=== PATIENT | female | born 1930 | race Caucasian/White ===

== ENCOUNTER 2017-09-06 08:55 | Day surgery (SDC) | payer MEDICARE, OTHER ==
[~2017-09-06] VITALS: Ht 160 cm; Wt 68.0 kg
[~2017-09-06 08:55] MED LIST: HYDROCHLOROTH12.5 M1 PO; LISINOPRIL20 MG PO; LO-DOSE ASPIRIN81 MG PO; METOPROLOL TART50 MG PO; NORVASC5 MG PO; OMEPRAZOLE20 MG PO; SIMVASTATIN40 MG PO
--- NOTE | 2017-09-06 11:31 | NUR ---
09/06/17 1131 Nena Silva 1125-PATIENT ARRIVED TO PACU ON 6L MASK O2 SAT 1000% AWAKE DENIES PAIN OR NAUSEA. 2 INCISION SITES TO LEFT GROIN CDI JOANIE DRAIN IN PLACE.
[2017-09-06] MEDS ORDERED: MAPAP325 MG PO (11:35)
[2017-09-06] MEDS ORDERED: HYDROCODON-ACE1 EA10 PO (11:35)
--- NOTE | 2017-09-06 12:03 | NUR ---
PAPER CHARTING DONE FOR INFORMATION PRIOR TO PHASE II. PLEASE SEE SCANNED PAPER CHART COPIES.
--- NOTE | 2017-09-06 12:13 | NUR ---
PT RETURNED FROM PACU. PT DENIES PAIN AND NAUSEA. PT TOLERATING PO FLUID AND JELLO. BED RAILS UP, CALL LIGHT WITHIN REACH.
--- NOTE | 2017-09-06 13:16 | NUR ---
PT UP TO REST ROOM. VOIDS 400ML WITHOUT DIFFICULTY. PT DRESSES SELF AND IS STEADY ON FEET WITH ONE PERSON STAND BY ASSIST. VITALS TAKEN. DISCHARGE INSTRUCTIONS REVIEWED. PT VERBALIZES UNDERSTANDING OF DISCHARGE INSTRUCTIONS. JOANIE DRAIN CARE REVIEWED WITH PT. PT VERBALIZES AND DEMONSTRATES UNDERSTANDING. PT WHEELED FROM UNIT. SON AT FRONT OF HOSPITAL, QUESTIONS ANSWERED.
--- NOTE | 2017-09-06 19:42 | OR ---
[facility] [address] [place] [address] Signed DATE OF OPERATION: 09/06/2017 SURGEON: Karl Sutton MD PREOPERATIVE DIAGNOSES: 1. History of left leg (lower medial thigh) melanoma 2012, status post excision, sentinel lymph node biopsy. 2. Left groin iliac adenopathy. 3. Left medial thigh soft tissue mass. 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 PROCEDURES: 1. Excision of left medial thigh soft tissue mass (deep subfascial). 2. Left inguinal lymph node excision and placement of drain. ANESTHESIA: General endotracheal, Jose [place], SUPERVISOR BUFFING AND PASTING and local 10 mL of 0.25% Marcaine with epinephrine. INDICATION: This 87-year-old white woman is a patient of Dr. Reilly and 4 years ago was seen by Dr. Merida, mental health program manager, in [place] and referred to [facility] to Dr. Carroll for definitive treatment of a melanoma of the left medial thigh. This included wide excision and sentinel lymph node biopsy. She said to have no sign of metastatic disease. More recently, she has been found to have a mass cephalad to the previous excision site and medial left thigh as well as regional adenopathy including adenopathy of the left groin. A CT scan was performed confirming iliac adenopathy as well, but no evidence of distant metastatic disease otherwise. She is admitted at this time to undergo excision of the primary lesion in the left medial thigh as well as excision of inguinal lymph node for tissue diagnosis. Of course, it is highly suspect she has recurrent melanoma, though the possibility of lymphoma and other abnormalities must be considered as well. She and her son understand the risks of bleeding, infection, lymphocele development, need for drain and so forth related to excision of the mass as well as inguinal lymph node biopsy and wished to proceed. Electronically Signed By: KARL SUTTON MD 09/06/17 1942 PATIENT NAME: LITO SO OPERATIVE REPORT DATE OF : 30 PHYSICIAN: KARL SUTTON MD REPORT #: [id number] REPORT IS CONFIDENTIAL AND NOT TO BE RELEASED WITHOUT AUTHORIZATION [facility] [address] [place], [place] [address] Signed FINDINGS: The lesion in the left medial thigh was perla and nonpigmented, very firm and hard and multilobulated and appeared to be contiguous with lymphatic chain in the medial thigh. More proximally, there was some deeply pigmented material within the lymphatic channels. Wide excision was undertaken of the mass with no clinically remaining abnormality in the medial lower thigh. As regard to the inguinal area, there is clearly metastatic disease to this area. The lesion itself looked purple externally, but when bivalved off the table, had a white dense central core to it. The superficial saphenous vein was draped over the mass of the left groin and was spared. A drain was placed extending from the superior wound distalward to the medial thigh wound and attached to bulb suction. DESCRIPTION OF PROCEDURE: The patient was brought to the operating room, given a general endotracheal anesthetic. Preoperative antibiotics were given. Sequential compression device stockings used and heparin subcutaneously administered. The abdomen through the knee was prepared with chlorhexidine solution and draped sterilely after external rotation and abduction of the proximal thigh. An incision was made directly over the left medial lower thigh soft tissue mass. Dissection was carried through the subcutaneous tissue with blunt and electrocautery dissection and the mass encountered. Using rather extensive dissection, it was widely excised including a pedicle more inferiorly that appeared to be lymphatic channel, which was congested with nodular change including some dark pigmentation. Once excised, the wound was irrigated with saline solution. Clips were used for hemostasis during the course of excision of the mass. It was taken down to the deep fascia. That wound was packed and plans made for evaluation of the upper groin area. Adenopathy appeared to be best approach through an inguinal approach. An incision was made along the line of skin tension cephalad to the inguinal ligament. Dissection carried through the subcutaneous tissue. Using blunt dissection, the inguinal adenopathy could easily be identified. The saphenous vein junction was draped over the lesion medially and it was dissected away from it. Multiple small clips were used for lymphatic channels, but ultimately the pathologic adenopathy was excised. There remains additional pathologic anatomy internally of course. The excised specimen was probably 5 cm in size. It was somewhat purple in its appearance. It was bivalved on the back table. The center portion of the tumor had a white caseating sort of appearance, not deep pigmentation. This specimen sent fresh to the pathologist. Irrigation was undertaken in that wound and with a combination of clips and so forth, good lymphatic control was noted. The wound was then closed with interrupted 2-0 Vicryl in a subcutaneous layer of the left groin and a running subcuticular 3-0 Vicryl for the skin. The lower anteromedial skin lesion was closed in layers interrupted 2-0 Vicryl and running subcuticular 3-0 Vicryl. Steri-Strips were applied as was Mepilex silver sponge dressing. Not mentioned previously was the passage of a 7 mm flat Bryant drain, which lay incontinuity with the Electronically Signed By: KARL SUTTON MD 09/06/171941 PATIENT NAME: SOLITO OPERATIVE REPORT DATE OF : 30 PHYSICIAN: KARL SUTTON MD REPORT #: [id number] REPORT IS CONFIDENTIAL AND NOT TO BE RELEASED WITHOUT AUTHORIZATION [address] [place] [address] Signed lower incision site and the groin incision site and emanated through the left lower quadrant. The drain is a Bryant-type drain and is contiguous with both spaces. That drain was secured to the skin with nylon suture. A Mepilex silver sponge dressing applied to both wounds inferiorly and superiorly. BLOOD LOSS: Less than 10 mL. COUNTS: Sponge, needle, and instruments counts reported as correct x3. MD AMBROCIO Hylton/MARCELO /[id number] cc: MD Robert Daniels MD Electronically Signed By: KARL SUTTON MD 09/06/17 1942 PATIENT NAME: LITO SO OPERATIVE REPORT DATE OF : 30 PHYSICIAN: KARL SUTTON MD REPORT #: [id number] REPORT IS CONFIDENTIAL AND NOT TO BE RELEASED WITHOUT AUTHORIZATION
[2017-09-30] MEDS ORDERED: ASPIR 8181 MG PO (15:01)
== END 2017-09-06 13:15 | disposition home or self-care (01) ==
LOC: DS 08:55
PROVIDERS: Surgery
PROC: 07BJ0ZX Excision of Left Inguinal Lymphatic, Open Approach, Diagnostic (ICD-10-PCS; 2017-09-06)
PROC: 0JBM0ZZ Excision of Left Upper Leg Subcutaneous Tissue and Fascia, Open Approach (ICD-10-PCS; principal; 2017-09-06 09:30)
DX: C77.4 Secondary and unspecified malignant neoplasm of inguinal and lower limb lymph nodes (principal); I10 Essential (primary) hypertension; E78.5 Hyperlipidemia, unspecified; K21.9 Gastro-esophageal reflux disease without esophagitis; Z85.820 Personal history of malignant melanoma of skin; Z88.0 Allergy status to penicillin; Z79.899 Other long term (current) drug therapy; Z90.710 Acquired absence of both cervix and uterus; Z98.41 Cataract extraction status, right eye; Z98.42 Cataract extraction status, left eye; Z90.49 Acquired absence of other specified parts of digestive tract; Z98.890 Other specified postprocedural states
CPT/HCPCS: 00400; 88305; 88342; J2405; J2704; J3010

== ENCOUNTER 2019-05-02 15:00 | Inpatient (IN) | payer MEDICARE, OTHER ==
[~2019-05-02] VITALS: Ht 160 cm; Wt 52.8 kg
[~2019-05-02 15:00] MED LIST changes: +ALLOPURINOL100 MG PO; +ASPIR 8181 MG PO; +HYDROCODON-ACE1 EA10 PO; +K-TAB ER20 MEQ PO; +MAPAP325 MG PO; +PREDNISONE10 MG PO
--- NOTE | 2019-05-02 18:56 | NUR ---
SHIFT RPEORT RECEIVED FROM DAYSHIFT BRANDEN FIGUEROA AT BEDSIDE. PT AWAKE AND RESTING IN CHAIR, BROTHER IN ROOM. PT DENIES PAIN OR NEEDS AT THIS TIME. CALL LIGHT IN REACH.
--- NOTE | 2019-05-02 21:00 | NUR ---
PT IN HALLWAY AMBULATING WITH SON, NO NEEDS AT THIS TIME. PT APPEARS COMFORTABLE AND IN GOOD SPIRITS.
--- NOTE | 2019-05-02 21:20 | NUR ---
ASSESSMENT COMPLETE, SCHEDULED MEDICATIONS GIVEN (SEE EMAR). VSS, PT A/OX4. DENIES PAIN. BED ALARM ON FOR SAFETY, CALL LIGHT IN REACH. NO FURTHER NEEDS AT THIS TIME.
--- NOTE | 2019-05-02 23:28 | NUR ---
PT RESTING IN BED, EYES CLOSED. RR WNL, PT APPEARS COMFORTABLE, NO SIGNS OF DISTRESS NOTED. CALL LIGHT IN REACH. BED ALARM ON FOR SAFETY.
--- NOTE | 2019-05-03 03:18 | NUR ---
PT RESTING IN BED, EYES CLOSED, RR WNL. NO DISTRESS NOTED, CALL LIGHT IN REACH. BED ALARM ON FOR SAFETY.
--- NOTE | 2019-05-03 05:01 | NUR ---
PT HAD UNEVENTFUL NIGHT, SLEPT FOR MOST OF SHIFT. VSS, PT ON RA. WENT FOR WALK WITH SON AT BEGINNING OF SHIFT. 2 GRAM SODIUM DIET, TOLERATING WELL, NO NAUSEA. DENIED PAIN ALL SHIFT. USES CALL LIGHT APPROPERIATELY, BED ALARM ON FOR SAFETY. SBA WITH AMBULATION. VOIDING QS, NO BM THIS SHIFT. PT SWING BED.
--- NOTE | 2019-05-03 06:55 | NUR ---
BEDSIDE HANDOFF REPORT RECEIVED FROM RADIO FREQUENCY ENGINEER RN. PT SLEEPING, LEFT UNDISTURBED.
--- NOTE | 2019-05-03 09:24 | NUR ---
PT SITTING IN CHAIR, OT WORKING WITH PT. PT ON ROOM AIR, DENIES SOB, LUNG SOUNDS CLEAR. CMS INTACT, WIHTOUT EDEMA. WITHOTU IV ACEESS. BOWEL TONES ACTIVE, DENIES NAUSEA, GOOD APPETITE. PT ALERT/ORIENTED. VSS. PT DENIES NEEDS AT THIS TIME.
--- NOTE | 2019-05-03 10:55 | NUR ---
THIS MORNING AROUND 0930 PATIENT DID SHOWER WITH OCCUPATIONAL THERAPY. I DID CHANGE THE BED LINENS.
--- NOTE | 2019-05-03 12:17 | NUR ---
PT SITTING IN CHAIR, DRESSED IN STREET CLOTHES. SHE IS ALERT, ORIENTED AND SEEMS TO HAVE MORE COGNITIVE IMPROVEMENT. TALKED ABOUT NOT ONLY RECENT EVENTS, BUT FROM YEARS GONE BY. VISITED ABOUT A WIDE ARRAY OF SUBJECTS AND ON POINT IN EACH. PT HAD A VISITOR COME, EXTENDED A BLESSING, WILL FOLLOW NEEDED
--- NOTE | 2019-05-03 13:24 | NUR ---
PT SITTING IN CHAIR, ASSISTED WITH ELEVATING FEET. PT READING NEWS PAPAER. PT DENIES OTHER NEEDS AT THIS TIME.
--- NOTE | 2019-05-03 17:30 | NUR ---
PT WALKED IN LAMB COMPLETED 2 LAPS AROUND NURSING FLOOR. PT FOUND MEDICATION IN HER PANT POCKETS, IDENTIFIED PREDNISONE, PT OK WITH DISPOSING OF LOOSE TABLETS. PT NOW SITTING IN ROOM, DENIES OTHER NEEDS AT THIS TIME.
--- NOTE | 2019-05-03 18:07 | NUR ---
PT HAD UNEVENTFUL DAY. PT ALERT AND ORIENTED. PT ON ROOM AIR. PT WORKED WITH OT AND ST. PT WITH GOOD APPETITE, TOLERATING LOW SODIUM DIET. PT INDEPENDENT IN ROOM, WALKED IN LAMB.
--- NOTE | 2019-05-03 19:12 | NUR ---
RECEIVED REPORT FROM BRANDEN PULIDO. pt SITTING IN CHAIR CHATTING WITH VISITOR. WILL AMBULATE "IN A BIT" NO REQUESTS AT THIS TIME. CALL LIGHT WITHIN REACH. WHITEBOARD UPDATED.
--- NOTE | 2019-05-03 21:26 | NUR ---
ASSESSMENT DONE. pt RESTING IN BED. MEDICATIONS GIVEN (SEE MAR). REFUSED SENNA, JUST HAD BM. DENIED PAIN AT THIS TIME. CALL LIGHT WITHIN REACH. LIGHTS OFF FOR COMFORT. EDUCATION ABOUT GETTING UP IN THE NIGHT. NO FURTHER REQUESTS AT THIS TIME.
--- NOTE | 2019-05-04 00:51 | NUR ---
ROUNDED ON pt. RESTING WITH EYES CLOSED, RESPIRATIONS REGULAR AND UNLABORED, RATE = 18. CALL LIGHT WITHIN REACH.
--- NOTE | 2019-05-04 03:08 | NUR ---
ROUNDED ON pt. NO REQUESTS AT THIS TIME. CALL LIGHT WITHIN REACH.
--- NOTE | 2019-05-04 05:51 | NUR ---
pt RESTED MOST OF SHIFT. SBA. TOLERATING 2GM SODIUM DIET. AMBULATED IN HALLWAY. USES CALL LIGHT APPROPRIATELY.
--- NOTE | 2019-05-04 09:23 | NUR ---
PT IS UP WORKING WITH OT, HAS BEEN WALKING. PT IS UP AND DRESSED.
--- NOTE | 2019-05-04 12:07 | NUR ---
OT GAVE A WEEKEND ROUTINE TO RN FOR PT TO FOLLOW. SUPERVISED ROUTINE IN AM: GATHER AND SET UP TOWELS FROM TABLE BY CABINET, GATHER AND SET UP CLOTHES, SHOWER, DRESS SEATED, GROOMING (TEETH HAIR). SUPERVISED ROUTINE IN PM: BRUSH TEETH, CHANGE INTO [place] OR HOSPITAL GOWN. SUPERVISED WALKS OFF UNIT WITH PT LEADING THE WAY/EXPLAINING HOW TO GET BACK. STAFF OR FAMILY MAY ESCORT. PT IS OK TO AMBULATE ON UNIT INDEPENDENTLY.
--- NOTE | 2019-05-04 12:26 | NUR ---
PT IS SWING BED AND DOING WELL. THANKFUL FOR THE PROGRAM. SLEPT WELL, PT HAS A FRIEND IN VISITING. EXTENDED A BLESSING, WILL FOLLOW NEEDED
--- NOTE | 2019-05-04 12:48 | NUR ---
PT WALKED TO CAFE WITH RESIN FILTERER. PT WAS ABLE TO NAVIGATE WITH NO CUES FROM RESIN FILTERER. CAME BACK AND ATE PIZZA BROUGHT IN BY FAMILY.
--- NOTE | 2019-05-04 15:45 | NUR ---
PT HAS BEEN VISITING WITH A FRIEND THIS AFTERNOON. PT HAS BEEN UP AMBULATING IN HALLS. NO COMPLAINTS AT THIS TIME.
--- NOTE | 2019-05-04 19:02 | NUR ---
RECEIVED REPORT FROM BRANDEN SINGER. pt SITTING IN CHAIR VISITING WITH FAMILY. NO REQUESTS AT THIS TIME. CALL LIGHT WITHIN REACH. WHITEBOARD UPDATED.
--- NOTE | 2019-05-04 20:45 | NUR ---
ASSESSMENT DONE. NIGHTLY CARES DONE WITH SUPERVISION. MEDICATIONS GIVEN (SEE MAR). pt SITTING UP TO READ. WATER REFRESHED. CALL LIGHT WITHIN REACH. NO FURTHER REQUESTS AT THIS TIME.
--- NOTE | 2019-05-04 22:50 | NUR ---
ROUNDED ON pt. RESTING WITH EYES CLOSED, RESPIRATIONS REGULAR AND UNLABORED. CALL LIGHT WITHIN REACH.
--- NOTE | 2019-05-05 | NUR ---
ROUNDED ON pt. RESTING WITH EYES CLOSED, RESPIRATIONS REGULAR AND UNLABORED. CALL LIGHT WITHIN REACH.
--- NOTE | 2019-05-05 02:01 | NUR ---
ROUNDED ON pt. RESTING WITH EYES CLOSED, RESPIRATIONS REGULAR AND UNLABORED. CALL LIGHT WITHIN REACH.
--- NOTE | 2019-05-05 03:30 | NUR ---
ROUNDED ON pt. RESTING IN BED. INCREASED TEMPERATURE PER REQUEST, BLANKET PROVIDED. pt UP TO VOID AND BACK TO BED. CALL LIGHT WITHIN REACH.
--- NOTE | 2019-05-05 05:24 | NUR ---
pt RESTED MOST OF SHIFT. SBA. TOLERATING 2GM SODIUM DIET. NO IV. USES CALL LIGHT APPROPRIATLEY.
--- NOTE | 2019-05-05 06:25 | NUR ---
ROUNDED ON pt. RESTING WITH EYES CLOSED, RESPIRATIONS REGULAR AND UNLABORED. CALL LIGHT WITHIN REACH.
--- NOTE | 2019-05-05 07:32 | NUR ---
MORNING ASSESSMENT DONE. PATIENT UP TO CHAIR, BREAKFAST IS ORDERED. PATIENT DENIES NEEDS.
--- NOTE | 2019-05-05 08:28 | NUR ---
PATIENT ATE 100% OF BREAKFAST. SET UP FOR SHOWER, CHANGED LINEN. PROVIDED SUPERVISION WHILE PATIENT PERFORMED ADLS, NO ASSISTANCE NEEDED. AAOX3.
--- NOTE | 2019-05-05 10:22 | NUR ---
PATIENT SITTING UP, VISITING WITH FAMILY, NO NEEDS AT THIS TIME.
--- NOTE | 2019-05-05 13:57 | NUR ---
PATIENT UP IN CHAIR, HAVING A NAP.
--- NOTE | 2019-05-05 15:08 | NUR ---
PATIENT REORGANIZING AND DRYING THE CONTENTS OF HER PURSE, INCLUDING A LARGE AMOUNT OF URENA. PATIENT HAD MOUTHWASH SPILL IN PURSE.
--- NOTE | 2019-05-05 17:19 | NUR ---
PATIENT HAS DONE WELL TODAY, MAINLY INDEPENDANT IN AND OUT OF ROOM. PATIENT HAD A SHOWER THIS MORNING, AMBULATED SEVERAL TIMES. PLAN IS FOR PATIENT TO DISCHARGE HOME ON TUESDAY IF SHE MEETS OT GOALS. PATIENT IS LOOKING FORWARD TO GOING [place] [facility] WITH FAMILY TOMORROW MORNING AT 9AM.
--- NOTE | 2019-05-05 19:00 | NUR ---
RECEIVED REPORT FROM BRANDEN POWELL. pt SITTING IN CHAIR, VISITING WITH FAMILY. NO REQUESTS AT THIS TIME. CALL LIGHT WITHIN REACH. WHITEBOARD UPDATED.
--- NOTE | 2019-05-05 20:41 | NUR ---
pt UP IN CHAIR READING. ASSESSMENT DONE. MEDICATIONS GIVEN (SEE MAR). WILL CALL TO DO NIGHTLY CARES. CALL LIGHT WITHIN REACH. VITALS AND I&O RECORDED.
--- NOTE | 2019-05-05 21:07 | NUR ---
COMPRESS ENGINEER ROUNDING NOTE. PT PERFORMED NIGHTLY CARES AND DRESSING IN [facility] WITHOUT ASSISTANCE. SIDE RAIL PUT UP FOR PT. PT DENIES FURTHER NEEDS, STATES THAT SHE WILL SHUT THE LIGHT OUT WHEN SHE IS READY TO GO TO SLEEP. CALL LIGHT IN REACH. WHITE BOARD UPDATED.
--- NOTE | 2019-05-05 23:43 | NUR ---
ROUNDED ON pt. RESTING WITH EYES CLOSED, RESPIRATIONS REGULAR AND UNLABORED. CALL LIGHT WITHIN REACH.
--- NOTE | 2019-05-06 03:36 | NUR ---
ROUNDED ON pt. RESTING IN BED. STATED "THIS IS MY NORMAL SLEEP PATTERN" NO REQUESTS AT THIS TIME. CALL LIGHT WITHIN REACH.
--- NOTE | 2019-05-06 05:25 | NUR ---
pt RESTED MOST OF SHIFT. INDEPENDENT IN ROOM WITH SUPERVISION OF CARES. NO IV. TOLERATING 2GM SODIUM DIET. USES CALL LIGHT APPROPRIATELY.
--- NOTE | 2019-05-06 06:00 | NUR ---
ROUNDED ON pt. RESTING WITH EYES CLOSED, RESPIRATIONS REGULAR AND UNLABORED. CALL LIGHT WITHIN REACH.
--- NOTE | 2019-05-06 07:10 | NUR ---
PT SITTING UP IN RECLINER AT BEDSIDE REPORT. NO COMPLIANTS AT THIS TIME
--- NOTE | 2019-05-06 15:40 | NUR ---
PT BACK FROM OUTING WITH FAMILY
--- NOTE | 2019-05-06 16:52 | NUR ---
pt alert and oriented sitting up in recliner.
--- NOTE | 2019-05-06 16:55 | NUR ---
PATIENT DECLINED WANTING A SHOWER TODAY, INSTEAD WOULD LIKE A SHOWER IN THE MORNING.
--- NOTE | 2019-05-06 17:40 | NUR ---
PT IS INDEPENDENT IN ROOM HAD BM THIS AM, LEFT FACILITY WITH DR.REDDY Jauregui TO FAMILY BBQ WITH NIECE IAN GEE. PT LEFT AT 1000 AND RETURNED AT 1535. PT REPORTED SHE WAS FULL FROM BBQ AND TIRED SO DID NOT WANT A SHOWER TONITE. SHE IS ALERT AND ORIETNED.
--- NOTE | 2019-05-06 19:05 | NUR ---
RECEIVED REPORT FROM BRANDEN MACIAS. pt RESTING WITH EYES CLOSED IN CHAIR. CALL LIGHT WITHIN REACH. WHITEBOARD UPDATED.
--- NOTE | 2019-05-06 20:10 | NUR ---
ASSESSMENT DONE. MEDICATIONS GIVEN (SEE MAR). VITALS AND I&O RECORDED. CAT HOOKER IN ROOM, pt GETTING READY TO SHOWER.
--- NOTE | 2019-05-06 20:39 | NUR ---
INTERNATIONAL PROJECT ENGINEER ROUNDING COMPLETE. PT RESTING IN BED. BATHROOM CLEANED, TOWELS PICKED UP AFTER PT'S SHOWER. PT DENIES NEEDS, QUESTIONS, OR CONCERNS AT THIS TIME. CALL LIGHT IN REACH. WHITE BOARD UPDATED.
--- NOTE | 2019-05-07 01:27 | NUR ---
ROUNDED ON pt. RESTING WITH EYES CLOSED, RESPIRATIONS REGULAR AND UNLABORED. CALL LIGHT WITHIN REACH.
--- NOTE | 2019-05-07 04:47 | NUR ---
ROUNDED ON pt. RESTING WITH EYES CLOSED, RESPIRATIONS REGULAR AND UNLABORED. CALL LIGHT WITHIN REACH.
--- NOTE | 2019-05-07 05:32 | NUR ---
pt RESTED MOST OF SHIFT. SHOWERED. NO IV. INDEPENDENT IN ROOM. TOLERATING DIET. USES CALL LIGHT APPROPRIATELY.
--- NOTE | 2019-05-07 07:21 | NUR ---
RECIEVED BEDSIDE REPORT FROM BRANDEN TAYLOR. PT IS SLEEPING SOUNDLY. PT PARTCIPATED WITH SELF CARE LAST NIGHT.
--- NOTE | 2019-05-07 09:05 | NUR ---
SPOKE WITH PATIENT IN ROOM. PATIENT IS UP IN CHAIR, DRESSED. DISCUSSED HOW SHE FEELS ABOUT POSSIBLE DISCHARGE TODAY. PATIENT STATES SHE FEELS VERY CONFIDENT SHE IS READY TO RETURN HOME. PATIENT LIVES ALONE. DISCUSSED WHAT HER PLAN IS FOR HELP IF NEEDED. SHE STATES SHE HAS ARRANGED FOR FAMILY TO CHECK IN WITH HER MULTIPLE TIMES A DAY. WE DISCUSSED POSSIBLE LIFE ALERT. PATIENT OPEN TO THIS, BROCHURE GIVEN. SHE STATES SHE IS GOING TO TALK WITH DR MATTHEWS AND HER FAMILY ABOUT THIS. DISUSSED TO NO DRIVE UNTIL SHE CLEARS THIS WITH DR MATTHEWS. DISCUSSED DISCOUNTED [employer] TICKETS FOR SENIORS. SHE STATES HER FAMILY WILL BE DRIVING HER FOR NOW. DISCUSSED S/S TO WATCH FOR AND WHAT TO DO IF SHE EXPERIENCES THEM. PATIENT IS KNOWLEDGEABLE ABOUT MEDICATIONS AND DIAGNOSIS. PATIENT SIGNED DISCHARGE FROM TRANSITIONAL CARE PROGRAM. CONTACT INFORMATION GIVEN FOR CASE MANAGEMENT IF SHE HAS ANY QUESTIONS AFTER GETTING HOME.
--- NOTE | 2019-05-07 09:30 | NUR ---
MANUAL BP MANUAL 130/[address] RODRIGUEZ.
[2019-05-07] MEDS ORDERED: LIPITOR40 MG PO (09:34)
[2019-05-07] MEDS ORDERED: CLOPIDOGREL75 MG PO (09:34)
[2019-05-07] MEDS ORDERED: PREDNISONE10 MG PO (09:35)
--- NOTE | 2019-05-07 11:33 | NUR ---
DISCHARGE TEACHING COMPLETE, INCLUDED FOLLOW UP, WHEN TO CALL THE DR, TRACKING BP, MEDICATIONS, AND ACTIVITY. ALL PERSONAL BELONGINGS PACKED PER PT. ALL QUESTIONS ANSWERED. PT AND FAMILY WERE VERY HAPPY WITH CARE PROVIDED.
--- NOTE | 2019-05-07 12:08 | NUR ---
PT READY FOR DC. SHE IS DRESSED AND SITTING IN CHAIR. HAD PLEASANT VISIT, PT EVEN BEGAN TO RECALL EVENTS AND PLACES THAT WERE IN HER LIFE. ONE OR TWO SHE COULDN'T REMEMBER AT FIRST. AFTER A MOMENT IT CAME TO HER. PRETTY REMARKABLE AFTER WHAT SHE HAS EXPERIENCED IN MY OPINION. EXTENDED A BLESSING, FOLLOWING NEEDED
--- NOTE | 2019-05-08 10:11 | NUR ---
FAXED CHART NOTES INCLUDING TRANS SWING BED NOTES: H AND P, DC SUMMARY AND PACKET, OT AND ST EVAL AND NOTES and from INPATIENT CHART HER OT, PT AND ST EVALS AND NOTES. RECEIVED FAX CONFIRMATION.
== END 2019-05-07 11:25 | disposition home or self-care (01) | DRG 57 ==
LOC: MS 15:00
PROVIDERS: ADMIT Internal Medicine
DX: I69.320 Aphasia following cerebral infarction (principal); N18.4 Chronic kidney disease, stage 4 (severe); C78.00 Secondary malignant neoplasm of unspecified lung; F80.2 Mixed receptive-expressive language disorder; I12.9 Hypertensive chronic kidney disease with stage 1 through stage 4 chronic kidney disease, or unspecified chronic kidney disease; R73.03 Prediabetes; E78.5 Hyperlipidemia, unspecified; E79.0 Hyperuricemia without signs of inflammatory arthritis and tophaceous disease; C43.9 Malignant melanoma of skin, unspecified; Z88.0 Allergy status to penicillin; Z79.82 Long term (current) use of aspirin; Z79.52 Long term (current) use of systemic steroids; Z79.899 Other long term (current) drug therapy
CPT/HCPCS: 96105; 97165; 97535; J1650; J7512